=== PATIENT | female | born 1950 | race Caucasian/White ===

== ENCOUNTER 2017-05-08 05:45 | Inpatient (IN) | payer MEDICARE, BC ==
[~2017-05-08] VITALS: Ht 149.9 cm; Wt 56.2 kg
[2017-05-08] VITALS (14 sets, daily range): BP systolic 103–156; BP diastolic 63–85
[2017-05-08] MEDS ORDERED: MULTIVITAMINS1 EAC2 ORAL (06:55)
[2017-05-08] MEDS ORDERED: NATURE-THROID65 M1 PO (06:55)
[2017-05-08] MEDS ORDERED: ceFAZolin sod 1 GM in D5W 55 ML IVPB ONE (07:00)
[2017-05-08] MEDS ORDERED: Bupivacaine 0.5% Inj 30 ml vial INJ ONE (07:04)
[2017-05-08] MEDS ORDERED: Surgicel 4in x 8in TOPIC ONE (07:04)
--- NOTE | 2017-05-08 07:13 | Anethesia Preoperative Eval ---
Anesthesia Pre-op PMH/ROS General Date of Evaluation: May 08, 2017 Anesthesiologist: Gregg ASA Score: ASA 2 Mallampati Score Class I : Soft palate, uvula, fauces, pillars visible Class II: Soft palate, uvula, fauces visible Class III: Soft palate, base of uvula visible Class IV: Only hard plate visible Mallampati Classification: Class II Surgeon: Bry Diagnosis: Left hydronephrosis Surgical Procedure: laparoscopic left radical nephrectomy Anesthesia History: none Family History: no anesthesia problems Allergies: Coded Allergies: No Known Allergies (Unverified , 05/07/17) Medications: see eMAR Past Medical History Cardiovascular: Denies: HTN, CAD, CT, valve dz, arrhythmia, other Pulmonary: Denies: asthma, COPD, FABIAN, other Gastrointestinal/Genitourinary: Reports: other - severe left hydronephrosis, Denies: GERD, CRI, ESRD Neurologic/Psychiatric: Denies: dementia, CVA, depression/anxiety, TIA, other Endocrine: Reports: hypothyroidism, Denies: DM, steroids, other HEENT: Denies: cataract (L), cataract (R), glaucoma, KARUK (L), KARUK (R), other Hematology/Immune: Denies: anemia, DVT, bleeding disorder, other Musculoskeletal/Integumentary: Denies: OA, RA, DJD, DDD, edema, other PSxH Narrative: Denies Anesthesia Pre-op Phys. Exam Physician Exam Last Vital Signs Date Time Temp Pulse Resp B/P (MAP) Pulse Ox O2 Delivery O2 Flow Rate FiO2 05/08/17 06:59 97.9 54 18 103/68 100 Room Air Constitutional: NAD Cardiovascular: RRR Respiratory: CTA Airway Exam Mallampati Score: Class II MO: full ROM: full Teeth: intact Dentures: upper - permanent, lower - permanent Anesthesia Pre-op A/P Labs see chart Studies Pre-op Studies: EKG - sb at 56bpm, CXR - No acute cardiopulmonary disease Risk Assessment & Plan Assessment: ASA II Plan: GA, ETT Status Change Before Surgery: No Pre-Antibiotics Drug: Ancef 1g Given Within 1 Hr of Incision: Yes Time Given: 07:45 COLBY BOYD M.D. May 08, 2017 07:13
[2017-05-08] MEDS ORDERED: fentaNYL 100 mcg/2 mL IV ONE (07:30)
[2017-05-08] MEDS ORDERED: Dexamethasone 4mg/ml vial ONE (07:30)
[2017-05-08] MEDS ORDERED: Nimbex 2mg/ml Inj 10ML IVP ONE (07:30)
[2017-05-08] MEDS ORDERED: Midazolam 2mg/2ml Inj ONE (07:30)
[2017-05-08] MEDS ORDERED: Propofol 200mg/20ml IV ONE (07:30)
[2017-05-08] MEDS ORDERED: Metoclopramide 10mg/2ml Inj ONE (07:30)
[2017-05-08] MEDS ORDERED: NS Irrig 1000ml ONE (07:30)
[2017-05-08] MEDS ORDERED: Sterile Water Irrig 1000ml IRRIG ONE (07:30)
[2017-05-08] MEDS ORDERED: Ketorolac 30mg Inj ONE (07:30)
[2017-05-08] MEDS ORDERED: Lidocaine 1% MPF 10mg/ml 5ml ONE (07:30)
[2017-05-08] MEDS ORDERED: NS Irrig 1000ml IRRIG ONE (07:40)
--- NOTE | 2017-05-08 07:40 | Pre-Procedure Note/Attestation ---
Pre-Procedure Note/Attestation Complete Prior to Procedure Planned Procedure: left Procedure Narrative: Left laparoscopic nephrectomy Indications for Procedure Pre-Operative Diagnosis: left hydronephrosis and non functioning kidney Attestation I attest that I discussed the nature of the procedure; its benefits; risks and complications; and alternatives (and the risks and benefits of such alternatives ), prior to the procedure, with the patient (or the patient's legal new accounts banking representative). I attest that, if there was a reasonable possibility of needing a blood transfusion, the patient (or the patient's legal new accounts banking representative) was given the [facility] standardized written summary, pursuant to the Efe Mychal Blood Safety Act ([place] Health and Safety Code # 1645, as amended). I attest that I re-evaluated the patient just prior to the surgery and that there has been no change in the patient's H&P, except as documented below: Cristofer Londono MD May 08, 2017 07:40
[2017-05-08] MEDS ORDERED: LORazepam Inj 2mg/ml 1ml IV PRN (08:15)
[2017-05-08] MEDS ORDERED: LR 1000ml 1,000 ML IVLG SCH (08:15)
[2017-05-08] MEDS ORDERED: DiphenhydrAMINE 50mg/ml Inj IVP PRN (08:15)
[2017-05-08] MEDS ORDERED: fentaNYL 100 mcg/2 mL IV PRN (08:15)
[2017-05-08] MEDS ORDERED: Midazolam 2mg/2ml Inj IVP PRN (08:15)
[2017-05-08] MEDS ORDERED: Hydromorphone 0.5mg/0.5ml inj IVP PRN (08:15)
--- NOTE | 2017-05-08 08:19 | Immediate Post-Op Evaluation ---
Immediate Post-Op Evalulation Immediate Post-Op Evalulation Procedure: Laparoscopic left radical nephrectomy Date of Evaluation: May 08, 2017 Time of Evaluation: 09:11 IV Fluids: 900 Blood Products: 0 Estimated Blood Loss: 50 Urinary Output: 200 Blood Pressure Systolic: 133 Blood Pressure Diastolic: 75 Pulse Rate: 74 Respiratory Rate: 16 O2 Sat by Pulse Oximetry: 100 Temperature (Fahrenheit): 97.5 Pain Score (1-10): 0 Nausea: No Vomiting: No Complications 0 Patient Status: awake, reacts, patent, none Hydration Status: adequate Drug: Ancef 1g Given Within 1 Hr of Incision: Yes Time Given: 07:45 COLBY BOYD M.D. May 08, 2017 08:19
--- NOTE | 2017-05-08 08:53 | Brief Operative Note ---
Immediate Post Operative Note Operative Note Pre-op Diagnosis: left hydronephrosis and non functioning kidney Procedure: left laparoscopic nephrectomy Post-op Diagnosis: same Post-op Diagnosis: same as pre-op Surgeon: Quique Londono Anesthesia: general Specimen: yes Complications: none Condition: stable Fluids: 500 Estimated Blood Loss: minimal Implant(s) used?: No Cristofer Londono MD May 08, 2017 08:53
[2017-05-08] MEDS: Docusate 100mg cap ORAL SCH ×2 (09:00→18:00)
[2017-05-08 10:04] LABS: BASOPHILS % (AUTO) 0.8 % (0.0-2.0); EOSINOPHILS % (AUTO) 0.4 % (0.0-3.0); HEMATOCRIT 39.1 % (37.0-47.0); HEMOGLOBIN 12.7 G/DL (12.0-16.0); LYMPHOCYTES % (AUTO) 15.2 % (20.0-45.0); MEAN CORPUSCULAR VOLUME 90 FL (80-99); MONOCYTES % (AUTO) 2.3 % (1.0-10.0); NEUTROPHILS % (AUTO) 81.3 % (45.0-75.0); PLATELET COUNT 387 K/UL (150-450); RED BLOOD COUNT 4.32 M/UL (4.20-5.40); RED CELL DISTRIBUTION WIDTH 11.4 % (11.6-14.8); WHITE BLOOD COUNT 11.6 K/UL (4.8-10.8)
[2017-05-08 10:13] LABS: ANION GAP 9 mmol/L (5-15); BLOOD UREA NITROGEN 25 mg/dL (7-18); CALCIUM 9.1 MG/DL (8.5-10.1); CARBON DIOXIDE 27 MMOL/L (21-32); CHLORIDE 102 MMOL/L (98-107); CREATININE 1.2 MG/DL (0.55-1.30); POTASSIUM 3.6 MMOL/L (3.5-5.1); SODIUM 138 MMOL/L (136-145)
[2017-05-08] MEDS ORDERED: Norco 5mg/325mg tab ORAL PRN (11:00)
[2017-05-08] MEDS ORDERED: Ketorolac 30mg Inj IM PRN (11:00)
[2017-05-08] MEDS ORDERED: HYDROmorphone 1mg/ml Carpuject IVP PRN (11:00)
[2017-05-08] MEDS: D5 1/2NS w/KCl 20mEq 1,000 ML IV SCH ×2 (12:16→22:44)
--- NOTE | 2017-05-08 15:13 | Consultation ---
History of Present Illness General Date patient seen: May 08, 2017 Reason for Consultation: inpatient manageement Present Illness HPI 66 year old female with hx of hypothyroid and hydronephrosis and non- functioning kidney, admitted for necrectomy. Post-operatively she is admitted to surgical floor for post-op care. Pt tolerated the surgery very well. She is complaining of hunger pain. Allergies: Coded Allergies: No Known Allergies (Unverified , 05/07/17) Medication History Scheduled Multivitamins* (Multivitamins*), 1 TAB ORAL DAILY, (Reported) Thyroid,Pork (Nature-Throid), 65 MG PO DAILY, (Reported) Patient History Healthcare decision maker jaime gray(sister) Resuscitation status Full Code Advanced Directive on File No Past Medical/Surgical History Past Medical/Surgical History: (1) Hypothyroidism Review of Systems All Other Systems: negative except mentioned in HPI Physical Exam General Appearance: WD/WN Lines, tubes and drains: peripheral HEENT: normocephalic, atraumatic Neck: non-tender, supple Respiratory/Chest: chest wall non-tender, lungs clear, no respiratory distress Cardiovascular/Chest: normal peripheral pulses, regularly irregular, no JVD Last 24 Hour Vital Signs Date Time Temp Pulse Resp B/P (MAP) Pulse Ox O2 Delivery O2 Flow Rate FiO2 05/08/17 14:00 98.0 82 18 140/79 96 Nasal Cannula 3.0 05/08/17 12:00 98.5 79 18 148/84 96 Nasal Cannula 3.0 05/08/17 11:00 Nasal Cannula 3.0 05/08/17 11:00 97.0 73 16 149/83 96 05/08/17 10:27 97.9 18 152/84 97 Nasal Cannula 05/08/17 10:15 71 20 149/85 96 Nasal Cannula 05/08/17 10:00 66 18 156/82 98 Nasal Cannula 05/08/17 09:45 68 20 150/80 100 Nasal Cannula 05/08/17 09:30 71 16 147/76 100 Nasal Cannula 05/08/17 09:20 70 18 142/74 100 Nasal Cannula 05/08/17 09:10 71 20 137/63 100 Nasal Cannula 05/08/17 09:09 74 16 100 05/08/17 09:06 97.5 74 16 133/75 100 Nasal Cannula 05/08/17 06:59 97.9 54 18 103/68 100 Room Air Laboratory Tests Test 05/08/17 09:50 White Blood Count 11.6 K/UL (4.8-10.8) H Red Blood Count 4.32 M/UL (4.20-5.40) Hemoglobin 12.7 G/DL (12.0-16.0) Hematocrit 39.1 % (37.0-47.0) Mean Corpuscular Volume 90 FL (80-99) Mean Corpuscular Hemoglobin 29.3 PG (27.0-31.0) Mean Corpuscular Hemoglobin Concent 32.4 G/DL (32.0-36.0) Red Cell Distribution Width 11.4 % (11.6-14.8) L Platelet Count 387 K/UL (150-450) Mean Platelet Volume 5.5 FL (6.5-10.1) L Neutrophils (%) (Auto) 81.3 % (45.0-75.0) H Lymphocytes (%) (Auto) 15.2 % (20.0-45.0) L Monocytes (%) (Auto) 2.3 % (1.0-10.0) Eosinophils (%) (Auto) 0.4 % (0.0-3.0) Basophils (%) (Auto) 0.8 % (0.0-2.0) Sodium Level 138 MMOL/L (136-145) Potassium Level 3.6 MMOL/L (3.5-5.1) Chloride Level 102 MMOL/L (98-107) Carbon Dioxide Level 27 MMOL/L (21-32) Anion Gap 9 mmol/L (5-15) Blood Urea Nitrogen 25 mg/dL (7-18) H Creatinine 1.2 MG/DL (0.55-1.30) Estimat Glomerular Filtration Rate 45.1 mL/min (>60) Glucose Level 206 MG/DL (74-106) H Calcium Level 9.1 MG/DL (8.5-10.1) Height (Feet): 4 Height (Inches): 11.00 Weight (Pounds): 124 Medications Current Medications Medications (Trade) Dose Ordered Sig/Kailey Route PRN Reason Start Time Stop Time Status Last Admin Dose Admin Acetaminophen (Tylenol) 650 mg Q4H PRN ORAL T>100.5 05/08/17 11:00 06/07/17 10:59 Acetaminophen (Tylenol) 650 mg Q6H PRN ORAL Mild Pain (Pain Scale 1-3) 05/08/17 11:00 06/07/17 10:59 Acetaminophen/ Hydrocodone Bitart ([place] 5/325) 1 tab Q4H PRN ORAL Moderate Pain (Pain Scale 4-6) 05/08/17 11:00 05/15/17 10:59 Al Hydroxide/Mg Hydroxide (Mylanta) 15 ml Q6H PRN ORAL DYSPEPSIA 05/08/17 11:00 06/07/17 10:59 Cefazolin Sodium 50 ml @ 100 mls/hr Q8H IV 05/08/17 15:30 05/08/17 23:59 Dextrose/ Electrolytes 1,000 ml @ 100 mls/hr Q10H IV 05/08/17 12:00 06/07/17 11:59 05/08/17 12:16 Docusate Sodium (Colace) 100 mg TWICE A DAY ORAL 05/08/17 09:00 06/07/17 08:59 Hydromorphone HCl (Dilaudid) 1 mg Q3H PRN IVP Severe Pain (Pain Scale 7-10) 05/08/17 11:00 05/15/17 10:59 05/08/17 12:31 Ketorolac Tromethamine (Toradol 30mg) 30 mg Q6H PRN IM BREAKTHROUGH PAIN 05/08/17 11:00 05/13/17 10:59 Ondansetron HCl (Zofran) 4 mg Q6H PRN IVP Nausea & Vomiting 05/08/17 11:00 06/07/17 10:59 05/08/17 12:30 Thyroid ([place] Thyroid) 60 mg ACBREAKFAST ORAL 05/09/17 06:30 06/08/17 06:29 Assessment/Plan Problem List: (1) S/p nephrectomy ICD Codes: Z90.5 - Acquired absence of kidney SNOMED: 61203548, 891918218 (2) Intractable abdominal pain ICD Codes: R10.9 - Unspecified abdominal pain SNOMED: 74481324, 889246794 (3) Hydronephrosis ICD Codes: N13.30 - Unspecified hydronephrosis SNOMED: 72020407 Assessment/Plan NPO IV fluids continue thyroid meds check electrolytes in am pain management H2 blockers. dvt prophylaxis ELLIOTT PORRAS May 08, 2017 15:13
[2017-05-08] MEDS ORDERED: ceFAZolin sod 2 GM in D5W 110 ML IV SCH (15:30)
[2017-05-08] MEDS: ceFAZolin 2gm/50ml Premix 50 ML IV SCH ×2 (15:58→22:43)
[2017-05-08] MEDS: Pantoprazole Inj IVP SCH ×2 (21:00→23:14)
[2017-05-09 00:43] VITALS: BP 113/62
[2017-05-09 04:00] VITALS: BP 115/65
[2017-05-09 06:02] LABS: BASOPHILS % (AUTO) 0.4 % (0.0-2.0); EOSINOPHILS % (AUTO) 0.3 % (0.0-3.0); HEMATOCRIT 32.8 % (37.0-47.0); HEMOGLOBIN 10.9 G/DL (12.0-16.0); LYMPHOCYTES % (AUTO) 24.3 % (20.0-45.0); MEAN CORPUSCULAR VOLUME 89 FL (80-99); MONOCYTES % (AUTO) 9.4 % (1.0-10.0); NEUTROPHILS % (AUTO) 65.6 % (45.0-75.0); PLATELET COUNT 254 K/UL (150-450); RED CELL DISTRIBUTION WIDTH 11.2 % (11.6-14.8); WHITE BLOOD COUNT 5.8 K/UL (4.8-10.8)
[2017-05-09 06:18] LABS: ANION GAP 6 mmol/L (5-15); BLOOD UREA NITROGEN 17 mg/dL (7-18); CALCIUM 8.7 MG/DL (8.5-10.1); CARBON DIOXIDE 27 MMOL/L (21-32); CHLORIDE 105 MMOL/L (98-107); CREATININE 1.2 MG/DL (0.55-1.30); POTASSIUM 4.7 MMOL/L (3.5-5.1); SODIUM 138 MMOL/L (136-145)
[2017-05-09 08:00] VITALS: BP 116/70
[2017-05-09] MEDS: Pantoprazole Inj IVP SCH ×2 (08:36→21:00)
[2017-05-09] MEDS: Docusate 100mg cap ORAL SCH ×2 (08:36→17:05)
[2017-05-09] MEDS: D5 1/2NS w/KCl 20mEq 1,000 ML IV SCH (08:36)
--- NOTE | 2017-05-09 08:42 | 48 Hour Post Anesthesia Eval ---
Post Anesthesia Evaluation Procedure: Laparoscopic left radical nephrectomy Date of Evaluation: May 09, 2017 Time of Evaluation: 10:40 Blood Pressure Systolic: 116 0: 70 Pulse Rate: 61 Respiratory Rate: 19 Temperature (Fahrenheit): 98.3 O2 Sat by Pulse Oximetry: 96 Airway: patent Nausea: No Vomiting: No Pain Intensity: 2 If pain is > 6 Comment: Most discomfort is from the sensation of having gas. She is ambulating well Hydration Status: adequate Cardiopulmonary Status: Stable Mental Status/LOC: patient returned to baseline Follow-up Care/Observations: As per surgery Post-Anesthesia Complications: No anesthetic complication Follow-up care needed: N/A RHIANNON GRACIA M.D. May 09, 2017 08:42
[2017-05-09 12:00] VITALS: BP 123/65
--- NOTE | 2017-05-09 12:56 | Pulmonology Progress Note ---
Assessment/Plan Problems: (1) S/p nephrectomy (2) Intractable abdominal pain (3) Hydronephrosis Assessment/Plan KUB symptomatic treatment labs checked Mylanta nc planning for tomorrow, if kub negative Subjective ROS Limited/Unobtainable: No Interval Events: c/o gas pain Allergies: Coded Allergies: No Known Allergies (Unverified , 05/07/17) Objective Last 24 Hour Vital Signs Date Time Temp Pulse Resp B/P (MAP) Pulse Ox O2 Delivery O2 Flow Rate FiO2 05/09/17 12:00 98.4 59 18 123/65 96 05/09/17 08:42 61 19 96 05/09/17 08:00 98.3 61 19 116/70 96 05/09/17 04:00 98.3 60 17 115/65 95 05/09/17 00:43 98.2 63 19 113/62 97 05/08/17 23:15 97.4 05/08/17 21:58 97.4 05/08/17 21:58 97.4 05/08/17 20:09 97.4 71 18 116/68 92 05/08/17 16:00 Room Air 05/08/17 16:00 98.4 88 17 135/78 93 05/08/17 14:00 98.0 82 18 140/79 96 Nasal Cannula 3.0 Intake and Output 05/08/17 05/09/17 19:00 07:00 Intake Total 480 ml Output Total 1100 ml Balance -620 ml Intake Oral 480 ml Output Urine Total 1100 ml General Appearance: WD/WN HEENT: normocephalic, atraumatic Respiratory/Chest: chest wall non-tender, lungs clear Breasts: no masses Cardiovascular: normal rate Abdomen: normal bowel sounds, soft, non tender Genitourinary: normal external genitalia Extremities: no cyanosis Skin: no rash 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, normal mood/affect Laboratory Tests 05/09/17 05:15: White Blood Count 5.8, Red Blood Count 3.70L, Hemoglobin 10.9L, Hematocrit 32.8L , Mean Corpuscular Volume 89, Mean Corpuscular Hemoglobin 29.6, Mean Corpuscular Hemoglobin Concent 33.3, Red Cell Distribution Width 11.2L, Platelet Count 254, Mean Platelet Volume 5.6L, Neutrophils (%) (Auto) 65.6, Lymphocytes (%) (Auto) 24.3, Monocytes (%) (Auto) 9.4, Eosinophils (%) (Auto) 0.3, Basophils (%) (Auto) 0.4, Sodium Level 138, Potassium Level 4.7, Chloride Level 105, Carbon Dioxide Level 27, Anion Gap 6, Blood Urea Nitrogen 17, Creatinine 1.2, Estimat Glomerular Filtration Rate 45.1, Glucose Level 116H, Calcium Level 8.7 Current Medications Medications (Trade) Dose Ordered Sig/Kailey Route PRN Reason Start Time Stop Time Status Last Admin Dose Admin Acetaminophen (Tylenol) 650 mg Q4H PRN ORAL T>100.5 05/08/17 11:00 06/07/17 10:59 05/08/17 21:58 Acetaminophen (Tylenol) 650 mg Q6H PRN ORAL Mild Pain (Pain Scale 1-3) 05/08/17 11:00 06/07/17 10:59 05/08/17 18:00 Acetaminophen/ Hydrocodone Bitart ([place] 5/325) 1 tab Q4H PRN ORAL Moderate Pain (Pain Scale 4-6) 05/08/17 11:00 05/15/17 10:59 Al Hydroxide/Mg Hydroxide (Mylanta) 15 ml Q6H PRN ORAL DYSPEPSIA 05/08/17 11:00 06/07/17 10:59 05/09/17 09:32 Dextrose/ Electrolytes 1,000 ml @ 100 mls/hr Q10H IV 05/08/17 12:00 06/07/17 11:59 05/09/17 08:36 Docusate Sodium (Colace) 100 mg TWICE A DAY ORAL 05/08/17 09:00 06/07/17 08:59 Hydromorphone HCl (Dilaudid) 1 mg Q3H PRN IVP Severe Pain (Pain Scale 7-10) 05/08/17 11:00 05/15/17 10:59 05/08/17 12:31 Ketorolac Tromethamine (Toradol 30mg) 30 mg Q6H PRN IM BREAKTHROUGH PAIN 05/08/17 11:00 05/13/17 10:59 05/08/17 22:45 Ondansetron HCl (Zofran) 4 mg Q6H PRN IVP Nausea & Vomiting 05/08/17 11:00 2/23/18 10:59 05/08/17 12:30 Pantoprazole (Protonix) 40 mg EVERY 12 HOURS IVP 05/08/17 21:00 06/07/17 20:59 05/08/17 23:14 Thyroid ([place] Thyroid) 60 mg ACBREAKFAST ORAL 05/09/17 06:30 06/08/17 06:29 ELLIOTT PORRAS May 09, 2017 12:56
--- NOTE | 2017-05-09 14:35 | Diagnostic Imaging Report ---
Indication: Abdominal pain and distention, status post laparoscopic nephrectomy Technique: Supine view of the abdomen Comparison: none Findings: There is considerable subcutaneous emphysema of the left lower quadrant. There are midline skin ricky. There are also left lower quadrant skin ricky. Surgical anastomotic ricky are seen in the left mid abdomen. There is evidence of free intraperitoneal air. Small bowel loops are diffusely gas filled, upper limits of normal in caliber. No unusual masses. Calcifications in the pelvis likely represent an old degenerated fibroid Impression: Considerable subcutaneous emphysema of the left lower quadrant. This may be related to recent laparoscopic surgery. However, the possibility of infection with gas-forming organism should also be considered. Evidence of free intraperitoneal air, presumably related to recent surgery Prominent diffusely gas-filled but not frankly distended small bowel loops, likely reflecting a mild postoperative ileus Findings discussed by phone with Dr. Londono at the time of interpretation
[2017-05-09 16:00] VITALS: BP 143/75
--- NOTE | 2017-05-09 18:30 | Operative Note - Dictated ---
DATE OF OPERATION: 05/08/2017 PREOPERATIVE DIAGNOSIS: Nonfunctioning left kidney. POSTOPERATIVE DIAGNOSIS: Nonfunctioning left kidney. OPERATIONS: Laparoscopic left radical nephrectomy. SURGEON: Cristofer Londono M.D. ANESTHESIA: General. FINDINGS: Nonfunctioning hydronephrotic left kidney. INDICATIONS FOR PROCEDURE: The patient had recurrent UTIs and resistant to antibiotics. CT scan showed nonfunctioning of the left urethra and nonfunctioning kidney. Treatment options were explained to her at great length including all potential complications. She signed the consent. DESCRIPTION OF PROCEDURE: She was brought to the operating room, placed in left lateral decubitus position, prepped and draped in standard fashion. Under general anesthesia, a midline incision was made in the subxiphoid area and hand port was placed. After that 3 additional trocars, a 12 mm, were placed. Pneumoperitoneum was created to 15 mmHg. After that dissection was started mobilizing the . Kidney was mobilized from surrounding adhesions and endo HERBIE was placed on the pedicle and kidney was transected through it and it was placed in . Kidney was removed. The wound was closed sequentially with no evidence of bleeding. The wound was carefully inspected, closed in three layers, ricky for the skin. The patient tolerated the procedure well. No evidence of complications. Cristofer Londono M.D. DR: BATSHEVA JOB#: [id number] CC:
[2017-05-09 20:00] VITALS: BP 131/86
[2017-05-10] VITALS: BP 139/74
[2017-05-10 04:00] VITALS: BP 130/63
[2017-05-10 08:03] VITALS: BP 132/71
[2017-05-10] MEDS: Docusate 100mg cap ORAL SCH (09:00)
[2017-05-10] MEDS: Pantoprazole Inj IVP SCH (09:00)
[2017-05-10 11:53] VITALS: BP 129/71
--- NOTE | 2017-05-10 12:58 | Pulmonology Progress Note ---
Assessment/Plan Problems: (1) S/p nephrectomy (2) Intractable abdominal pain (3) Hydronephrosis Assessment/Plan improving dressed up already symptomatic treatment labs checked Keily garibay today with f/u with Dr. Londono Subjective ROS Limited/Unobtainable: No Constitutional: Reports: no symptoms HEENT: Repors: no symptoms Respiratory: Reports: no symptoms Allergies: Coded Allergies: No Known Allergies (Unverified , 05/07/17) Objective Last 24 Hour Vital Signs Date Time Temp Pulse Resp B/P (MAP) Pulse Ox O2 Delivery O2 Flow Rate FiO2 05/10/17 11:53 98.0 65 18 129/71 96 Room Air 05/10/17 08:03 97.9 64 18 132/71 97 05/10/17 04:00 99.6 63 19 130/63 92 05/10/17 00:00 98.9 62 20 139/74 92 05/09/17 20:00 98.8 67 19 131/86 92 05/09/17 16:00 98.8 63 18 143/75 97 Intake and Output 05/09/17 05/10/17 19:00 07:00 Intake Total 320 ml 420 ml Balance 320 ml 420 ml Intake Oral 320 ml 420 ml # Voids 3 6 General Appearance: WD/WN HEENT: normocephalic, anicteric Respiratory/Chest: chest wall non-tender, normal breath sounds Cardiovascular: normal rate Abdomen: normal bowel sounds, no organomegaly Extremities: no clubbing Skin: no lesions Microbiology Date/Time Source Procedure Growth Status 05/08/17 06:15 Nasal Nares MRSA Culture - Final NO METHICILLIN RESISTANT STAPH AUREUS... Complete Current Medications Medications (Trade) Dose Ordered Sig/Kailey Route PRN Reason Start Time Stop Time Status Last Admin Dose Admin Acetaminophen (Tylenol) 650 mg Q4H PRN ORAL T>100.5 05/08/17 11:00 06/07/17 10:59 05/08/17 21:58 Acetaminophen (Tylenol) 650 mg Q6H PRN ORAL Mild Pain (Pain Scale 1-3) 05/08/17 11:00 06/07/17 10:59 05/08/17 18:00 Acetaminophen/ Hydrocodone Bitart ([place] 5/325) 1 tab Q4H PRN ORAL Moderate Pain (Pain Scale 4-6) 05/08/17 11:00 1/31/18 10:59 Al Hydroxide/Mg Hydroxide (Mylanta) 15 ml Q6H PRN ORAL DYSPEPSIA 05/08/17 11:00 06/07/17 10:59 05/09/17 09:32 Docusate Sodium (Colace) 100 mg TWICE A DAY ORAL 05/08/17 09:00 06/07/17 08:59 Hydromorphone HCl (Dilaudid) 1 mg Q3H PRN IVP Severe Pain (Pain Scale 7-10) 05/08/17 11:00 05/15/17 10:59 05/08/17 12:31 Ketorolac Tromethamine (Toradol 30mg) 30 mg Q6H PRN IM BREAKTHROUGH PAIN 05/08/17 11:00 05/13/17 10:59 05/08/17 22:45 Ondansetron HCl (Zofran) 4 mg Q6H PRN IVP Nausea & Vomiting 05/08/17 11:00 06/07/17 10:59 05/08/17 12:30 Pantoprazole (Protonix) 40 mg EVERY 12 HOURS IVP 05/08/17 21:00 06/07/17 20:59 05/08/17 23:14 Thyroid ([place] Thyroid) 60 mg ACBREAKFAST ORAL 05/09/17 06:30 06/08/17 06:29 05/10/17 06:36 ELLIOTT PORRAS May 10, 2017 12:58
[2017-05-10] MEDS ORDERED: Tubing IV Secondary IV ONE (13:39)
[2017-05-10] MEDS ORDERED: D5 1/2NS 1000ml IV ONE (13:39)
--- NOTE | 2017-05-13 08:42 | Discharge Summary ---
Discharge Summary Hospital Course Date of Admission May 08, 2017 at 05:45 Date of Discharge May 10, 2017 at 13:40 Admitting Diagnosis Nonfunctioning hydronephrotic left kidney. Reason for Hospitalization: elective surgery HPI Marya Ruth is a 66 year old female who was admitted on May 08, 2017 at 05:45 for non functioning left hydronephrotic kidney . The patient had recurrent UTIs and was resistant to antibiotics. CT scan showed nonfunctioning of the left urethra and nonfunctioning kidney. Treatment options were explained to patient at great length, including all potential complications. She opted for elective surgery and signed the consent. Patient was admitted for elective surgery Consultations dr Smith - IM Procedures s/p 05/08/[address] Londono Laparoscopic left radical nephrectomy. Hospital Course s/p surgery IVF pain management surgical site clean prophylactic antibiotics ambulated voided freely home meds resumed DVT GI prophylaxis provided VSS labs stable pain controlled bowel regimen [id number] patient was stable fro dc home with services fup with surgeon in 1 week FINAL DIAGNOSIS Nonfunctioning hydronephrotic left kidney s/p Laparoscopic left radical nephrectomy. Discharge Medications Continued Medications: Multivitamins* (Multivitamins*) 1 Each Tablet 1 TAB ORAL DAILY, TAB 0 Refills Thyroid,Pork (Nature-Throid) 65 Mg Tablet 65 MG PO DAILY, TAB Discharge Condition Upon Discharge: stable Discharge Disposition Patient was discharged to Home with Home Health(06) Discharge Diagnoses: Discharge Instructions Discharge Instructions Special Instructions I have been assigned to complete a D/C Summary on this account. I was not involved in the patient management Rhoda Gordon NP ([place]) May 13, 2017 08:42
== END 2017-05-10 13:40 | disposition home health service (06) | DRG 660 ==
LOC: SDSOVERFLO 05:45 → 3E 10:50
PROC: 0TT14ZZ Resection of Left Kidney, Percutaneous Endoscopic Approach (ICD-10-PCS; principal; 2017-05-08 07:30)
DX: N13.0 Hydronephrosis with ureteropelvic junction obstruction (principal); E03.9 Hypothyroidism, unspecified; N28.9 Disorder of kidney and ureter, unspecified; Z87.440 Personal history of urinary (tract) infections; Z87.891 Personal history of nicotine dependence
CPT/HCPCS: 36415; 74018; 80048; 85025; 86850; 86900; 86901; 87081; 94003; 94150; J2250; J2405; J2765